=== PATIENT | female | born 1945 | race Caucasian/White ===

== ENCOUNTER 2016-12-07 07:59 | Day surgery (SDC) | payer MEDICARE, OTHER ==
[~2016-12-07 07:59] MED LIST: RINGERS SOLUTION,LACTATED 1,000 ML IV PRN; ceFAZolin SODIUM 1 GM VIAL IV PRN
[2016-12-07] MEDS ORDERED: BUPIVACAINE HCL 50 ML VIAL IJ ONE (08:55)
[2016-12-07 10:52] VITALS: BP 122/66
--- NOTE | 2016-12-07 11:24 | OR ---
Operative Report - Dictated Report Narrative: DATE OF PROCEDURE: 12/07/2016 SURGEON: Darío Delatorre M.D. FLATTENING PRESS OPERATOR: Elpidio Gutierrez PA-C PREOPERATIVE DIAGNOSIS: Mucous cyst of left third toe POSTOPERATIVE DIAGNOSIS: Mucous cyst of left third toe OPERATION: Excision of mucous cyst left third toe ANESTHESIA: MAC with digital block TOURNIQUET: 12 min @ 300 mmHg INDICATIONS: Mrs. Farmer is a 71-year-old female who presented to the orthopedic clinic with complaints of a cyst on her left third toe. It has been present for a few years and has slowly gotten larger and more painful with shoe wear. I discussed treatment options with her including observation versus excision of the cyst. After discussion of the risks and benefits which include , but are not limited to, cyst recurrence, neurovascular injury, wound complications, infection, and need for additional procedures, the patient wished to proceed with surgery. Informed consent was obtained in the clinic. FINDINGS: Mucous cyst over the dorsum of the left third toe PIP joint DESCRIPTION OF PROCEDURE: The patient was seen in the preoperative holding area and the left foot was marked. She was brought back to the operating room where Mac anesthesia was induced without complication. A nonsterile tourniquet was placed around the left thigh and the left lower extremity was then prepped and draped in the usual sterile fashion. The operative extremity was then exsanguinated with an Esmarch bandage and the tourniquet was inflated to 300 mmHg. A third toe digital block was performed with 0.5% Marcaine without epinephrine. Attention was then turned to the cyst, which was approximately 3 mm in diameter directly over the dorsum of the PIP joint. An elliptical incision approximately 1 cm in length was made ellipsing out the calloused skin over the top of the cyst. Dissection was carried down into the subcutaneous tissue and the cyst itself was dissected out using tenotomy scissors. No obvious stalk could be identified but the cyst was removed in its entirety. The cyst was inspected and found to be full of gelatinous material consistent with a mucous cyst. At this point felt we had removed all the cyst tissue and the wound was copiously irrigated with normal saline. It was closed with interrupted 4-0 nylon suture. The wound was dressed with Xeroform, 4 x 4's, Devi, and an Patricio wrap. All counts were correct at the end of the case. The patient was awoken from anesthesia and taken to the PACU in stable condition.
== END 2016-12-07 08:00 | disposition home or self-care (01) ==
LOC: AMB 07:59
PROVIDERS: ATTEND Orthopaedic Surgery
PROC: 0JBR0ZZ Excision of Left Foot Subcutaneous Tissue and Fascia, Open Approach (ICD-10-PCS; principal; 2016-12-07 09:00)
DX: M67.479 Ganglion, unspecified ankle and foot (principal); Z68.26 Body mass index [BMI] 26.0-26.9, adult

== ENCOUNTER 2016-12-11 04:00 | Emergency (ER) | payer MEDICARE, OTHER ==
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
[2016-12-11] MEDS: NITROGLYCERIN 0.4 MG/TAB BTL SL ONE ×2 (04:13→04:18)
[2016-12-11 04:17] LABS: Hematocrit 39.6 % (37.0-47.0); Hemoglobin 13.6 gm/dL (12.5-16.0); Mean Cell Volume 90.8 fl (78-100); Mean Corpuscular Hemoglobin 31.2 pg (27-31); Mean Corpuscular Hgb Conc 34.3 g/dl (32-36); Mean Platelet Volume 10.4 fl (6.0-9.5); Neutrophil # 5.5 K/mm3 (1.3-6.0); Neutrophil % 61.3 % (42-75.0); Platelet Count 177 K/mm3 (150-450); Red Blood Count 4.36 M/mm3 (4.2-5.4); Red Cell Distribution Width 13.6 % (11.5-14.0)
[2016-12-11] MEDS ORDERED: NORMAL SALINE 1,000 ML IV ONE ×2 (04:20→06:47)
[2016-12-11] MEDS: NORMAL SALINE 1,000 ML IV ONE ×2 (04:32→05:37)
[2016-12-11 04:36] LABS: Troponin I Less than 0.017 ng/ml (0.00-0.10)
[2016-12-11 04:40] LABS: Anion Gap 17.6 mmol/L (6.8-13.8); BUN/Creatinine Ratio 10.8 (9.0-21.6); Blood Urea Nitrogen 12 mg/dL (3-23); Calcium * 9.6 mg/dL (7.9-10.9); Carbon Dioxide 23.7 mmol/L (24-32.6); Chloride 101 mmol/L (97-106); Glucose * 137 mg/dL (70-110); Potassium 3.3 mmol/L (3.4-4.6); Sodium 139 mmol/L (132-142); TSH * 7.259 uIU/mL (0.358-3.74)
[2016-12-11] MEDS ORDERED: POTASSIUM CHLORIDE 20 MEQ TABLET.SA PO ONE (04:42)
[2016-12-11] MEDS ORDERED: NITROGLYCERIN 1 INCH PACKET TD ONE ×2 (04:45→04:46)
[2016-12-11 04:55] LABS: Urine Appearance Clear; Urine Bacteria None Seen; Urine Bilirubin Negative (NEGATIVE); Urine Blood 5 /ul (NEGATIVE); Urine Color Yellow; Urine Ketone 15 mg/dL (NEGATIVE); Urine Nitrite Negative (NEGATIVE); Urine Protein Negative (NEGATIVE); Urine RBC 0-5 /hpf (0-5); Urine Urobilinogen Normal (NORMAL); Urine WBC None Seen /hpf (0-5)
[2016-12-11] MEDS ORDERED: POTASSIUM CHLORIDE 20 MEQ TABLET.SA ONE (05:09)
[2016-12-11 05:11] LABS: Potassium 3.6 mmol/L (3.4-4.6); Troponin I Less than 0.017 ng/ml (0.00-0.10)
[2016-12-11] MEDS ORDERED: ONDANSETRON HCL/PF 2 MG/ML VIAL IV PRN (06:13)
[2016-12-11] MEDS ORDERED: MORPHINE SULFATE 4 MG/ML SYRG ONE (06:14)
[2016-12-11] MEDS ORDERED: MORPHINE SULFATE 4 MG/ML SYRG IV ONE (06:14)
[2016-12-11] MEDS ORDERED: HEPARIN SODIUM,PORCINE 5,000 UNITS/ML VIAL IV ONE (06:18)
[2016-12-11] MEDS ORDERED: NITROGLYCERIN IN 5 % DEXTROSE 50 MG/250 ML INFUS..BTL IV PRN (06:19)
[2016-12-11] MEDS ORDERED: ONDANSETRON HCL/PF 2 MG/ML VIAL ONE ×2 (06:22→06:41)
[2016-12-11] MEDS ORDERED: HEPARIN SODIUM,PORCINE 5,000 UNITS/ML VIAL ONE (06:22)
[2016-12-11] MEDS ORDERED: fentaNYL CITRATE/PF 50 MCG/ML AMPUL ONE (06:38)
[2016-12-11] MEDS ORDERED: ONDANSETRON HCL/PF 2 MG/ML VIAL IV ONE ×2 (06:38→06:40)
[2016-12-11] MEDS ORDERED: fentaNYL CITRATE/PF 50 MCG/ML AMPUL IV ONE (06:40)
[2016-12-11 06:43] VITALS: BP 124/45
== END 2016-12-11 07:02 | disposition short-term general hospital (02) ==
LOC: ER 04:00 → MS 06:05 → UNDOADMOB 06:05 → ER 07:02
DX: E03.9 Hypothyroidism, unspecified (principal); I20.9 Angina pectoris, unspecified
CPT/HCPCS: 36415; 71010; 71275; 80048; 81001; 83605; 84132; 84443; 84484; 85025; 85379; 87040; 87086; 93005; 96365; 96375; 99285; J2405